=== PATIENT | female | born 1960 | race Caucasian/White ===

== ENCOUNTER → 2017-03-02 | Outpatient (CLI) | payer OTHER ==
[~2017-03-02] MED LIST: ALBU17AE23; ASPI-892; ATROVENT; FURO40TA4; HYDR-3714; KCL20TCR; LEVO75TA57; PRD10T; SMV20T; WARF7.5T
--- NOTE | 2017-03-05 09:16 | Diagnostic Imaging Report ---
Bilateral screening mammogram The current study was also evaluated with a Computer Aided Detection (CAD) system. Indication: Screening. No current complaints stated on the questionnaire. COMPARISON: 02/29/16. FINDINGS: The breasts are composed of scattered fibroglandular densities. There are scattered benign-appearing calcifications. Allowing for technique and positional differences, no suspicious change is seen. IMPRESSION: No significant change. ACR BI-RADS Category 2: Benign findings. Result letter will be mailed to the patient. Note: At least 10% of breast cancer is not imaged by mammography. Dictated by: Dictated on workstation # [id number]
== END ==
LOC: RAD 06:54
PROVIDERS: ATTEND Obstetrics & Gynecology
DX: Z12.31 Encounter for screening mammogram for malignant neoplasm of breast (principal)
CPT/HCPCS: 77067

== ENCOUNTER 2018-09-16 21:03 | Emergency (ER) | payer OTHER ==
[~2018-09-16] VITALS: Ht 167.6 cm; Wt 77.1 kg
[2018-09-16 21:34] LABS: INR 1.9 (0.8-1.4); PROTHROMBIN TIME PATIENT 22.2 SEC (12.2-14.7)
[2018-09-16 21:36] LABS: BASOPHILS # (AUTO) 0.1 10^3/uL (0.0-0.1); BASOPHILS % (AUTO) 1 % (0-10); EOSINOPHILS # (AUTO) 0.1 10^3/uL (0.0-0.3); EOSINOPHILS % (AUTO) 1 % (0-10); HEMATOCRIT 40 % (35-52); HEMOGLOBIN 13.8 G/DL (11.5-16.0); LYMPHOCYTES # (AUTO) 3.2 X 10^3 (1.0-4.0); LYMPHOCYTES % (AUTO) 36 % (12-44); MEAN CORPUSCULAR HEMOGLOBIN 32 PG (25-34); MEAN CORPUSCULAR HGB CONC 34 G/DL (32-36); MEAN CORPUSCULAR VOLUME 94 FL (80-99); MEAN PLATELET VOLUME 9.6 FL (7.4-10.4); MONOCYTES # (AUTO) 0.9 X 10^3 (0.0-1.0); MONOCYTES % (AUTO) 10 % (0-12); NEUTROPHILS # (AUTO) 4.6 X 10^3 (1.8-7.8); NEUTROPHILS % (AUTO) 52 % (42-75); PLATELET COUNT 271 10^3/uL (130-400); RED BLOOD COUNT 4.26 10^6/uL (4.35-5.85); WHITE BLOOD COUNT 8.8 10^3/uL (4.3-11.0)
--- NOTE | 2018-09-16 21:36 | ED EENT ---
History of Present Illness General Chief Complaint: Nasal Problems Stated Complaint: NOSE BLEED/ON BLOOD THINNERS Nursing Triage Note: PT AMB TO ROOM #7 W/O DIFFICLTY. A&OX4. C/O NOSE BLEED THAT BEGAN APPROX 1930 THIS EVENING. PT REPORTS SHE HAS NEVER HAD A NOSE BLEED LIKE THIS BEFORE AND HAS BEEN UNABLE TO STOP THE BLEEDING WITH PRESSURE. REPORTS TO BE TAKING COUMADIN AND HAD INR TAKEN THIS MORNING BUT DID NOT RECIEVE RESULTS. INITIAL BP 140/80. Source: patient Exam Limitations: no limitations History of Present Illness Date Seen by Provider: Sep 16, 2018 Time Seen by Provider: 21:06 Initial Comments Patient is a 58-year-old female who presents to the emergency room with complaints of a nosebleed that began around 1930 tonight. 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 She reports that she's held pressure has not been able to get the bleeding to stop. The bleeding is coming from the left nostril. Timing/Duration: abrupt Location: nose Prearrival Treatment: squeezing nostrils, nasal packing Associated Symptoms: denies symptoms Allergies and Home Medications Allergies Coded Allergies: No Known Drug Allergies (Verified Allergy, Unknown, 04/09/09) Patient Home Medication List Home Medication List Reviewed: Yes Review of Systems Review of Systems Constitutional: no symptoms reported, see HPI Nose: see HPI, epistaxis All Other Systems Reviewed Negative Unless Noted: Yes Past Jthtpkh-Kpdunw-Lfjstn Hx Past Med/Social Hx: Reviewed Nursing Past Med/Soc Hx Patient Social History Recent Foreign Travel: No Contact w/Someone Who Travel: No Recent Infectious Disease Expo: No Past Medical History Reproductive Disorders: No Family Medical History Reviewed Nursing Family Hx Physical Exam Vital Signs Vital Signs - First Documented 09/16/18 21:06 Temp 96.8 Pulse 86 Resp 16 B/P (MAP) 140/80 (100) Pulse Ox 96 O2 Delivery Room Air Height, Weight, BMI Height: 5'6.00" Weight: 170lbs. oz. 77.800572ib; BMI Method:Stated General Appearance: WD/WN, no apparent distress Nose: active bleeding (left nostril) Mouth/Throat: normal mouth inspection, other (no blood noted in the back of her throat.) Neck: non-tender, full range of motion, supple, normal inspection Cardiovascular: normal peripheral pulses, regular rate, rhythm, no edema, no gallop, no JVD, no murmur, other (audible clicking from artificial aortic valve) Respiratory: chest non-tender, lungs clear, normal breath sounds, no respiratory distress, no accessory muscle use Neurologic/Psychiatric: alert, normal mood/affect, oriented x 3 Skin: normal color, warm/dry Progress/Results/Core Measures Results/Orders Lab Results Laboratory Tests Test 09/16/18 21:16 Range/Units White Blood Count 8.8 4.3-11.0 10^3/uL Red Blood Count 4.26 L 4.35-5.85 10^6/uL Hemoglobin 13.8 11.5-16.0 G/DL Hematocrit 40 35-52 % Mean Corpuscular Volume 94 80-99 FL Mean Corpuscular Hemoglobin 32 25-34 PG Mean Corpuscular Hemoglobin Concent 34 32-36 G/DL Red Cell Distribution Width 14.0 10.0-14.5 % Platelet Count 271 130-400 10^3/uL Mean Platelet Volume 9.6 7.4-10.4 FL Neutrophils (%) (Auto) 52 42-75 % Lymphocytes (%) (Auto) 36 12-44 % Monocytes (%) (Auto) 10 0-12 % Eosinophils (%) (Auto) 1 0-10 % Basophils (%) (Auto) 1 0-10 % Neutrophils # (Auto) 4.6 1.8-7.8 X 10^3 Lymphocytes # (Auto) 3.2 1.0-4.0 X 10^3 Monocytes # (Auto) 0.9 0.0-1.0 X 10^3 Eosinophils # (Auto) 0.1 0.0-0.3 10^3/uL Basophils # (Auto) 0.1 0.0-0.1 10^3/uL Prothrombin Time 22.2 H 12.2-14.7 SEC INR Comment 1.9 H 0.8-1.4 Activated Partial Thromboplast Time 33 24-35 SEC My Orders Orders - ROLO TRAYLOR Protime With Inr (09/16/18 21:14) Partial Thromboplastin Time (09/16/18 21:14) Cbc With Automated Diff (09/16/18 21:30) Vital Signs/I&O 09/16/18 21:06 Temp 96.8 Pulse 86 Resp 16 B/P (MAP) 140/80 (100) Pulse Ox 96 O2 Delivery Room Air Blood Pressure Mean: 100 Progress Progress Note : Time: 21:10 Progress Note The patient's nasal packing of tissue was removed and she blew her nose to remove any possible clots. Small amount of blood started out of the left nostril. Nose clamp was placed. Bleeding ceased. We will continue to observe while awaiting lab work. Departure Impression Primary Impression: Epistaxis Disposition: HOME, SELF-CARE Condition: Stable/Unchanged Departure-Patient Inst. Decision time for Depature: 22:12 Referrals: MACARIO NAIDU MD (PCP/Family) Primary Care Physician Patient Instructions: Nosebleeds (DC) Add. Discharge Instructions: If your nose should start bleeding again apply direct pressure for 15-20 minutes with the nose clamp. If you are unsuccessful at getting the bleeding to stop. Return back to the emergency room. Follow-up with your primary care provider within 1 week for recheck. Return back to the emergency room for any worsening symptoms or concerns as needed. All discharge instructions reviewed with patient and/or family. Voiced understanding. ROLO TRAYLOR Sep 16, 2018 21:36
[2018-09-16 22:22] VITALS: BP 108/62
== END 2018-09-16 22:22 | disposition home or self-care (01) ==
LOC: EDUNIT# 21:03 → ER 21:03
DX: R04.0 Epistaxis (principal)
CPT/HCPCS: 36415; 85025; 85610; 85730

== ENCOUNTER → 2019-03-04 | Outpatient (CLI) | payer OTHER ==
--- NOTE | 2019-03-04 12:56 | Diagnostic Imaging Report ---
INDICATION: Routine screening. COMPARISON: 03/04/2018 and 03/02/2017. TECHNIQUE: 2D and 3D bilateral screening mammography was performed with CAD. FINDINGS: Scattered fibroglandular densities are identified bilaterally. Benign calcifications are identified bilaterally. No mass or malignant appearing microcalcifications are seen. The axillae are unremarkable. IMPRESSION: No mammographic features suspicious for malignancy are identified. ACR BI-RADS Category 2: Benign findings. Result letter will be mailed to the patient. Note: At least 10% of breast cancer is not imaged by mammography. Dictated by: Dictated on workstation # [id number]
== END ==
LOC: RAD 07:08
PROVIDERS: ATTEND Obstetrics & Gynecology
DX: Z12.31 Encounter for screening mammogram for malignant neoplasm of breast (principal)
CPT/HCPCS: 77067

== ENCOUNTER 2019-12-09 08:31 | Emergency (ER) | payer OTHER ==
[~2019-12-09] VITALS: Ht 167 cm; Wt 77.0 kg
--- NOTE | 2019-12-09 08:40 | NUR ---
INSERTED 7.5 RAPID RHINO IN L NOSTRIL
[2019-12-09 09:05] LABS: BASOPHILS % (AUTO) 0 % (0-10); EOSINOPHILS # (AUTO) 0.1 10^3/uL (0.0-0.3); EOSINOPHILS % (AUTO) 1 % (0-10); HEMATOCRIT 42 % (35-52); HEMOGLOBIN 14.4 G/DL (11.5-16.0); LYMPHOCYTES # (AUTO) 2.5 X 10^3 (1.0-4.0); LYMPHOCYTES % (AUTO) 25 % (12-44); MEAN CORPUSCULAR HEMOGLOBIN 32 PG (25-34); MEAN CORPUSCULAR HGB CONC 34 G/DL (32-36); MEAN CORPUSCULAR VOLUME 95 FL (80-99); MONOCYTES % (AUTO) 10 % (0-12); NEUTROPHILS # (AUTO) 6.4 X 10^3 (1.8-7.8); NEUTROPHILS % (AUTO) 63 % (42-75); PLATELET COUNT 257 10^3/uL (130-400); RED CELL DISTRIBUTION WIDTH 13.9 % (10.0-14.5)
[2019-12-09] MEDS ORDERED: ACETAMINOPHEN 500 MG TAB (TYLENOL) PO STA (09:19)
[2019-12-09 09:24] LABS: INR 1.8 (0.8-1.4); PROTHROMBIN TIME PATIENT 21.3 SEC (12.2-14.7)
--- NOTE | 2019-12-09 09:28 | ED EENT ---
History of Present Illness General Chief Complaint: Nasal Problems Stated Complaint: NOSE BLEED Nursing Triage Note: PT AMUBULATED TO ROOM [address] NAIDU'S OFFICE W NOSE BLEED THAT THEY WERE UNABLE TO STOP. PT STATES STARTED BLEEDING 0630 THIS AM. PT IS ON COUMADIN Source: patient, family Exam Limitations: no limitations History of Present Illness Date Seen by Provider: Dec 09, 2019 Time Seen by Provider: 08:36 Initial Comments Here with report of nosebleed that started about 6:30 this morning. She's had multiple nosebleeds over the past few months. She is on Coumadin for mechanical heart valve and is on aspirin as well. She also takes naproxen intermittently fo r pain. This is apparently prescribed. She uses a humidifier in her bedroom and in her office at work. She went to her doctor's office first and they could not get the bleeding to stop and sent her over here. Noticed that the bleeding was from the left but with direct pressure, the bleeding would then move around to the right. She is spitting out blood as well. She has direct pressure currently and still has blood going down her throat currently. Denies any injury. Timing/Duration: abrupt Location: nose Prearrival Treatment: squeezing nostrils, nasal packing Associated Symptoms: No facial pain/swelling, No fever Allergies and Home Medications Allergies Coded Allergies: No Known Drug Allergies (Verified Allergy, Unknown, 04/09/09) Patient Home Medication List Home Medication List Reviewed: Yes Review of Systems Review of Systems Constitutional: see HPI; No chills, No fever Eyes: No Symptoms Reported Nose: clots, epistaxis Mouth: no symptoms reported Throat: no symptoms reported Respiratory: no symptoms reported Cardiovascular: see HPI; No chest pain, No edema Skin: no symptoms reported Past Ekcpsmo-Veptup-Tcvcfv Hx Past Med/Social Hx: Reviewed Nursing Past Med/Soc Hx Patient Social History Alcohol Use: Denies Use Recreational Drug Use: No Smoking Status: Never a Smoker Type Used: Cigarettes 2nd Hand Smoke Exposure: Yes Recent Foreign Travel: No Contact w/Someone Who Travel: No Recent Infectious Disease Expo: No Recent Hopitalizations: No Physical Abuse: No Sexual Abuse: No Seasonal Allergies Seasonal Allergies: No Past Medical History Surgeries: Yes (L LUMPECTOMY, D AND C) CABG Respiratory: No Cardiac: Yes High Cholesterol, Hypertension Neurological: No Reproductive Disorders: No Genitourinary: No Gastrointestinal: No Musculoskeletal: No Endocrine: Yes HEENT: No Cancer: No Psychosocial: No Integumentary: No Blood Disorders: Yes Family Medical History Reviewed Nursing Family Hx No Pertinent Family Hx Physical Exam Vital Signs Vital Signs - First Documented 12/09/19 12/09/19 08:31 10:08 Temp 36.6 Pulse 101 Resp 24 B/P (MAP) 144/94 (111) Pulse Ox 96 O2 Delivery OxyMask O2 Flow Rate 10.00 Height, Weight, BMI Height: 5'6.00" Weight: 170lbs. oz. 77.734663lj; 27.00 BMI Method:Stated General Appearance: WD/WN, no apparent distress Nose: active bleeding, other (Blood noted from left side of nose with moderate to rapid drainage. Also noted drainage from the right nares and posterior pharynx with clot noted in the posterior pharynx.) Mouth/Throat: No trismus; other (clot noted as above) Neck: full range of motion, supple Cardiovascular: regular rate, rhythm, no murmur Respiratory: lungs clear, normal breath sounds Neurologic/Psychiatric: alert, oriented x 3 Skin: normal color, warm/dry Progress/Results/Core Measures Results/Orders Lab Results Laboratory Tests Test 12/09/19 08:54 12/09/19 10:14 Range/Units White Blood Count 10.0 4.3-11.0 10^3/uL Red Blood Count 4.47 4.35-5.85 10^6/uL Hemoglobin 14.4 11.5-16.0 G/DL Hematocrit 42 35-52 % Mean Corpuscular Volume 95 80-99 FL Mean Corpuscular Hemoglobin 32 25-34 PG Mean Corpuscular Hemoglobin Concent 34 32-36 G/DL Red Cell Distribution Width 13.9 10.0-14.5 % Platelet Count 257 130-400 10^3/uL Mean Platelet Volume 10.0 7.4-10.4 FL Neutrophils (%) (Auto) 63 42-75 % Lymphocytes (%) (Auto) 25 12-44 % Monocytes (%) (Auto) 10 0-12 % Eosinophils (%) (Auto) 1 0-10 % Basophils (%) (Auto) 0 0-10 % Neutrophils # (Auto) 6.4 1.8-7.8 X 10^3 Lymphocytes # (Auto) 2.5 1.0-4.0 X 10^3 Monocytes # (Auto) 1.0 0.0-1.0 X 10^3 Eosinophils # (Auto) 0.1 0.0-0.3 10^3/uL Basophils # (Auto) 0.0 0.0-0.1 10^3/uL Prothrombin Time 21.3 H 12.2-14.7 SEC INR Comment 1.8 H 0.8-1.4 Activated Partial Thromboplast Time 34 24-35 SEC Sodium Level 139 135-145 MMOL/L Potassium Level 4.2 3.6-5.0 MMOL/L Chloride Level 109 H 98-107 MMOL/L Carbon Dioxide Level 20 L 21-32 MMOL/L Anion Gap 10 5-14 MMOL/L Blood Urea Nitrogen 30 H 7-18 MG/DL Creatinine 0.82 0.60-1.30 MG/DL Estimat Glomerular Filtration Rate > 60 BUN/Creatinine Ratio 37 Glucose Level 124 H 70-105 MG/DL Calcium Level 9.4 8.5-10.1 MG/DL Corrected Calcium 9.3 8.5-10.1 MG/DL Magnesium Level 1.9 1.6-2.4 MG/DL Total Bilirubin 0.4 0.1-1.0 MG/DL Aspartate Amino Transf (AST/SGOT) 20 5-34 U/L Alanine Aminotransferase (ALT/SGPT) 20 0-55 U/L Alkaline Phosphatase 80 40-136 U/L Troponin I < 0.028 <0.028 NG/ML Total Protein 7.1 6.4-8.2 GM/DL Albumin 4.1 3.2-4.5 GM/DL TSH [place] Testing 1.08 0.35-4.94 UIU/ML My Orders Orders - DONNY HENRIQUEZ MD Cbc With Automated Diff (12/09/19 08:51) Protime With Inr (12/09/19 08:51) Partial Thromboplastin Time (12/09/19 08:51) Acetaminophen Tablet (Tylenol Tablet) (12/09/19 09:19) Hydrocodone/Apap 5/325 Tablet (Lortab 5 (12/09/19 09:30) Comprehensive Metabolic Panel (12/09/19 10:17) Magnesium (12/09/19 10:17) Thyroid Analyzer (12/09/19 10:17) Troponin I (12/09/19 10:17) Ed Iv/Invasive Line Start (12/09/19 10:17) Ekg Tracing (12/09/19 10:17) O2 (12/09/19 10:17) Monitor-Rhythm Ecg Trace Only (12/09/19 10:17) Ed Iv/Invasive Line Start (12/09/19 10:17) Lactated Ringers (Lr 1000 Ml Iv Solution (12/09/19 10:17) Chest 1 View, Ap/Pa Only (12/09/19 10:37) Ed Iv/Invasive Line Start (12/09/19 11:07) Lactated Ringers (Lr 1000 Ml Iv Solution (12/09/19 11:07) Medications Given in ED Current Medications Medications Dose Ordered Sig/Sarah Route Start Time Stop Time Status Last Admin Dose Admin Acetaminophen/ Hydrocodone Bitart 1 tab ONCE ONCE PO 12/09/19 09:30 12/09/19 09:31 DC 12/09/19 09:23 1 TAB Lactated Ringer's 1,000 ml @ 0 mls/hr Q0M ONCE IV 12/09/19 10:17 12/09/19 10:19 DC 12/09/19 10:08 1,000 MLS/HR Lactated Ringer's 1,000 ml @ 0 mls/hr Q0M ONCE IV 12/09/19 11:07 12/09/19 11:09 DC 12/09/19 10:12 1,000 MLS/HR Vital Signs/I&O 12/09/19 12/09/19 08:31 10:08 Temp 36.6 Pulse 101 Resp 24 B/P (MAP) 144/94 (111) Pulse Ox 96 88 O2 Delivery OxyMask O2 Flow Rate 10.00 Blood Pressure Mean: 111 Progress Progress Note : Progress Note Seen and evaluated. Significant bleeding noted bilateral nares and posterior pharynx despite direct pressure. Bleeding initially from left naris so 7.5 cm rapid Rhino placed to the left and balloon inflated. Bleeding did stop. Large clot was dislodged and patient was able to spit that out. She was a lot more comfortable afterwards. We will check blood counts and coags. Monitor patient. 0915: Hydrocodone 5/325 one tab by mouth given and acetaminophen 500 mg by mouth given. Monitor patient. Bleeding has stopped. 0940: We're working on getting appointment with Dr. Lopez's office this week. 1030: At time of discharge (1010), patient became weak and had near syncopal episode. In pressure noted to drop down to the 70s systolic. IV 2 initiated and LR 1 L bolus initiated and second LR bolus initiated. I did relax the balloon slightly. Placed on monitor. We will get more complaints of the labs and EKG. She is doing better currently with blood pressure 103/56 and heart rate of 72 and O2 sat 97% on supplemental oxygen. Monitor patient. 1155: Patient has been unable to walk unassisted and is overall feeling much better. I was able to decrease the pressure in the balloon while maintaining hemostasis. This has made her more comfortable. Discharged home with return precautions. Patient and family verbalize understanding instructions and agreement with plan. Initial ECG Impression Date: Dec 09, 2019 Initial ECG Impression Time: 10:21 Initial ECG Rate: 74 Initial ECG Rhythm: Normal Sinus Initial ECG Impression: Sinus Bradycardia Initial ECG Comparisson: Changed (essentially unchanged from 09 March 2009 but there is minimal first-degree AV block noted now.) Comment Sinus rhythm with first-degree AV block. Left atrial abnormality. Normal axis. No evidence of ST elevation PA. Interpreted by me. Diagnostic Imaging Diagonstic Imaging: Xray Plain Films/CT/US/NM/MRI: chest Comments [facility]. [place], [place] NAME: SUZANNE LEY [facility] REC#: [id number] PT STATUS: REG ER : 1960 PHYSICIAN: DONNY HENRIQUEZ MD ADMIT DATE: 12/09/19/ER Draft Date of Exam:12/09/19 CHEST 1 VIEW, AP/PA ONLY INDICATION: Epistaxis since earlier in the day. TECHNIQUE: Single view chest at 11:12 AM. CORRELATION STUDY: 03/09/2009. FINDINGS: There has been interval sternotomy changes as well as placement of a cardiac prosthesis. The heart size is enlarged. The vasculature is slightly increased. The lungs are clear with no consolidating infiltrate. There is no significant effusion or pneumothorax. IMPRESSION: Interval sternotomy changes with placement of a cardiac valve. Cardiac enlargement with borderline vasculature, a change from the prior study. Dictated on workstation # [id number] Dict: 12/09/19 1118 Trans: 12/09/19 1138 [id number] Interpreted by: MACIEL ROBERTSON DO Electronically signed by: Departure Impression Primary Impression: Epistaxis Additional Impression: Syncope Qualified Codes: R55 - Syncope and collapse Disposition: 01 HOME, SELF-CARE Condition: Improved Departure-Patient Inst. Decision time for Depature: 09:43 Referrals: MACARIO NAIDU MD (PCP/Family) Primary Care Physician Patient Instructions: Nosebleeds (DC), Syncope (Fainting) (DC) Add. Discharge Instructions: All discharge instructions reviewed with patient and/or family. Voiced understanding. Follow-up with your Dr. in a few days for recheck. Follow-up with Dr. Lopez's clinic on Sunday, 12/12 at 9 AM. Please be 15 minutes early recheck in. Keep rapid Rhino in place. You may take Tylenol/acetaminophen 1000 mg every 6-8 hours as needed for pain. Do not exceed 4000 mg in 24 hours. Return for worse pain, fever, vomiting, weakness, breathing problems or other concerns as needed. Copy Copies To 1: BRITTNEY LOPEZ MD Copies To 2: MACARIO NAIDU MD, TIMOTHY D MD Dec 09, 2019 09:28
[2019-12-09] MEDS ORDERED: HYDROcodone/APAP 5 MG/325 MG (LORTAB) TAB PO ONE (09:30)
--- NOTE | 2019-12-09 10:06 | NUR ---
PT BEING DISCHARGED, PT BECAME WEAK AND DIZZY, PT HAD NEAR SYNCOPAL EPISODE AND WAS UNABLE TO FOLLOW DIRECTIONS, TO LIFT R LEG ONTO BED. PT VERY PALE. DR NOTIFIED AND TO ROOM, PT TO MONITORS. 1008 IV STARTED AND LR AT OPEN STARTED.PT SAT 88% RA 1012 IV STARTED AND 2ND LITER OF LR STARTED. PT ECO2- 24. B/P-81/55 PT VERY GROGGY
[2019-12-09] MEDS ORDERED: LACTATED RINGERS 1,000 ML IV ONE ×3 (10:17→15:25)
[2019-12-09 10:41] LABS: ALANINE AMINOTRANSFERASE 20 U/L (0-55); ALBUMIN 4.1 GM/DL (3.2-4.5); ALKALINE PHOSPHATASE 80 U/L (40-136); BILIRUBIN,TOTAL 0.4 MG/DL (0.1-1.0); BUN/CREATININE RATIO 37; CALCIUM 9.4 MG/DL (8.5-10.1); CARBON DIOXIDE 20 MMOL/L (21-32); CHLORIDE 109 MMOL/L (98-107); CREATININE SERUM 0.82 MG/DL (0.60-1.30); GFR ESTIMATED > 60; GLUCOSE 124 MG/DL (70-105); MAGNESIUM 1.9 MG/DL (1.6-2.4); POTASSIUM 4.2 MMOL/L (3.6-5.0); SODIUM 139 MMOL/L (135-145); TOTAL PROTEIN 7.1 GM/DL (6.4-8.2)
--- NOTE | 2019-12-09 11:00 | NUR ---
PT MORE AWAKE BUT RESTS W EYES CLOSED. AT SIDE
[2019-12-09 11:01] LABS: TSH (THYROID ANALYZER) 1.08 UIU/ML (0.35-4.94)
--- NOTE | 2019-12-09 11:38 | Diagnostic Imaging Report ---
INDICATION: Epistaxis since earlier in the day. TECHNIQUE: Single view chest at 11:12 AM. CORRELATION STUDY: 03/09/2009. FINDINGS: There has been interval sternotomy changes as well as placement of a cardiac prosthesis. The heart size is enlarged. The vasculature is slightly increased. The lungs are clear with no consolidating infiltrate. There is no significant effusion or pneumothorax. IMPRESSION: Interval sternotomy changes with placement of a cardiac valve. Cardiac enlargement with borderline vasculature, a change from the prior study. Dictated by: Dictated on workstation # [id number]
[2019-12-09 12:05] VITALS: BP 97/58
== END 2019-12-09 12:05 | disposition home or self-care (01) ==
LOC: EDUNIT# 08:31 → ER 08:32
DX: R04.0 Epistaxis (principal); R55 Syncope and collapse; I10 Essential (primary) hypertension; E78.00 Pure hypercholesterolemia, unspecified; Z77.22 Contact with and (suspected) exposure to environmental tobacco smoke (acute) (chronic); Z95.1 Presence of aortocoronary bypass graft; Z79.82 Long term (current) use of aspirin; Z95.2 Presence of prosthetic heart valve
CPT/HCPCS: 36415; 71045; 80053; 83735; 84443; 84484; 85025; 85610; 85730; 93005; 93041

== ENCOUNTER → 2020-04-06 | Outpatient (CLI) | payer OTHER ==
--- NOTE | 2020-04-06 12:40 | Diagnostic Imaging Report ---
INDICATION: Routine screening. COMPARISON: 03/04/2019 and 03/04/2018. TECHNIQUE: 2D and 3D bilateral screening mammography was performed with CAD. FINDINGS: Scattered fibroglandular densities are identified bilaterally. Benign calcifications are noted bilaterally. The overall parenchymal pattern appears to be stable. No dominant mass or malignant appearing microcalcifications are seen. The axillae are unremarkable. IMPRESSION: No mammographic features suspicious for malignancy are identified. ACR BI-RADS Category 2: Benign findings. Result letter will be mailed to the patient. Note: At least 10% of breast cancer is not imaged by mammography. Dictated by: Dictated on workstation # [id number]
== END ==
LOC: RAD 07:04
PROVIDERS: ATTEND Obstetrics & Gynecology
DX: Z12.31 Encounter for screening mammogram for malignant neoplasm of breast (principal)
CPT/HCPCS: 77063; 77067

== ENCOUNTER → 2021-05-09 | Outpatient (CLI) | payer OTHER ==
--- NOTE | 2021-05-09 10:55 | Diagnostic Imaging Report ---
INDICATION: Routine screening. COMPARISON: 04/06/2020 and 03/04/2019. TECHNIQUE: 2D and 3D bilateral screening mammography was performed with CAD. FINDINGS: Scattered fibroglandular densities are identified bilaterally. The parenchymal pattern is stable. There are benign calcifications bilaterally. No mass or malignant appearing microcalcifications are seen. The axillae are unremarkable. IMPRESSION: No mammographic features suspicious for malignancy are identified. ACR BI-RADS Category 2: Benign findings. Result letter will be mailed to the patient. Note: At least 10% of breast cancer is not imaged by mammography. Dictated by: Dictated on workstation # [id number]
== END ==
LOC: RAD 08:59
PROVIDERS: ATTEND Obstetrics & Gynecology
DX: Z12.31 Encounter for screening mammogram for malignant neoplasm of breast (principal)
CPT/HCPCS: 77063; 77067

== ENCOUNTER → 2021-07-14 | Outpatient (CLI) | payer OTHER | LOC: CARD 10:00 | PROVIDERS: ATTEND Family Medicine | DX: I08.3 Combined rheumatic disorders of mitral, aortic and tricuspid valves (principal); I25.10 Atherosclerotic heart disease of native coronary artery without angina pectoris | CPT/HCPCS: 93306 ==

== ENCOUNTER → 2021-08-19 | Outpatient (CLI) | payer OTHER ==
[~2021-08-19] VITALS: Ht 165 cm; Wt 75.0 kg
[~2021-08-19] MED LIST changes: +REGADENOSON 0.4 MG/5 ML SYR (LEXISCAN) IV ONE
[2021-08-19] MEDS: CATHETER FLUSH 10 ML SYR IV PRN ×2 (07:29→09:01)
[2021-08-19 09:00] VITALS: BP 118/72
--- NOTE | 2021-08-22 13:45 | STRESS TEST ---
DATE OF SERVICE: RESTING AND POST REGADENOSON TECHNETIUM-99M TETROFOSMIN SPECT CT IMAGING ORDERING PHYSICIAN: Natasha Sung APRN PRIMARY PHYSICIAN: Dr. Gabriel. CLINICAL DIAGNOSES: Coronary artery disease. Baseline images were carried out after injection of 10.46 mCi of technetium-99m Tetrofosmin. This was followed by 0.4 mg of regadenoson and 30.1 mCi of technetium-99m Tetrofosmin for stress imaging. The electrocardiogram showed sinus rhythm at baseline. There is nonspecific intraventricular conduction delay. The electrocardiogram did not change significantly with regadenoson infusion. The patient tolerated the procedure well. Review of images at rest and following stress does not indicate any distinct perfusion defects consistent with significant myocardial ischemia or infarction. Some apical thinning is noted both at rest and following regadenoson infusion. Gated images show normal global left ventricular systolic function with normal regional wall motion, including the left ventricular apex. Left ventricular ejection fraction is calculated to be 67%. Left ventricular end diastolic volume is 58 mL. TID is absent (1.15). CONCLUSIONS: 1. No evidence of any significant myocardial ischemia or infarction on this study. 2. Normal regional wall motion. 3. Normal global left ventricular systolic function with a calculated ejection fraction of 67%. Job ID: [id number] DocumentID: [id number] Dictated Date: 08/22/2021 13:00:55 Production Operations Inspector Date: 08/22/2021 13:44:37 Dictated By: GLENN RM MD, MA, FACP, FACC,
== END ==
LOC: CARD 07:45
PROVIDERS: ATTEND Nurse Practitioner Family
DX: I25.10 Atherosclerotic heart disease of native coronary artery without angina pectoris (principal)
CPT/HCPCS: 78452; 93017; A9502

== ENCOUNTER → 2022-03-01 | Outpatient (CLI) | payer OTHER ==
[~2022-03-01] MED LIST changes: -REGADENOSON 0.4 MG/5 ML SYR (LEXISCAN) IV ONE
--- NOTE | 2022-03-02 09:04 | Diagnostic Imaging Report ---
Indication: Routine screening. Comparison is made with prior mammogram 05/09/2021 and 04/06/2020. 2-D and 3-D bilateral screening mammography was performed with CAD. CAD is utilized. The current study was also evaluated with a Computer Aided Detection (CAD) system. Scattered fibroglandular densities are identified bilaterally. The parenchymal pattern is stable. There are benign calcifications bilaterally. No mass or malignant-appearing microcalcifications are seen. Axillae are unremarkable. IMPRESSION: BI-RADS Category 2 No mammographic features suspicious for malignancy are identified. ACR BI-RADS Category 2: Benign findings. Result letter will be mailed to the patient. Note: At least 10% of breast cancer is not imaged by mammography. Dictated by: Dictated on workstation # [id number]
== END ==
LOC: RAD 15:45
PROVIDERS: ATTEND Family Medicine
DX: Z12.31 Encounter for screening mammogram for malignant neoplasm of breast (principal)
CPT/HCPCS: 77063; 77067

== ENCOUNTER 2022-03-09 05:38 | Outpatient (CLI) | payer OTHER ==
[~2022-03-09] VITALS: Ht 167.6 cm; Wt 77.6 kg
[2022-03-09] MEDS ORDERED: CETI10TA17 PO (09:49)
[2022-03-09] MEDS ORDERED: ROSU20TA32 PO (09:49)
== END 2022-03-09 10:05 | disposition home or self-care (01) ==
LOC: PREOP 05:38
PROVIDERS: ATTEND Surgery
DX: Z01.818 Encounter for other preprocedural examination (principal)

== ENCOUNTER 2022-03-21 07:20 | Day surgery (SDC) | payer OTHER ==
[~2022-03-21] VITALS: Ht 167.6 cm; Wt 77.6 kg
[~2022-03-21 07:20] MED LIST changes: +CETI10TA17 PO; +ROSU20TA32 PO
[2022-03-21] MEDS ORDERED: LACTATED RINGERS 1,000 ML IV STA (07:26)
[2022-03-21 07:33] VITALS: BP 97/62
[2022-03-21] MEDS ORDERED: MIDAZOLAM 2 MG/2 ML (VERSED) VIAL ONE (07:42)
[2022-03-21] MEDS ORDERED: PROPOFOL INJECTION 50 ML IV ONE (07:42)
[2022-03-21 08:35] VITALS: BP 89/54
[2022-03-21 08:40] VITALS: BP 88/52
--- NOTE | 2022-03-21 08:41 | Discharge Inst-Simple/Standard ---
Discharge Inst-Standard Patient Instructions/Follow Up Plan of Care/Instructions/FU: 2 weeks pavithra start coumadin tomorrow Activity as Tolerated: Yes Discharge Diet: Regular Diet (high fiber) DION HERNANDEZ DO March 21, 2022 08:41
[2022-03-21 08:45] VITALS: BP 107/62
[2022-03-21 09:15] VITALS: BP 111/68
--- NOTE | 2022-03-21 12:08 | Anesthesia-General Post-Op ---
MAC Patient Condition Mental Status/LOC: Same as Preop Cardiovascular: Satisfactory Nausea/Vomiting: Absent Respiratory: Satisfactory Pain: Controlled Complications: Absent Post Op Complications Complications None Follow Up Care/Instructions Patient Instructions None needed. Anesthesiology Discharge Order Discharge Order Patient is doing well, no complaints, stable vital signs, no apparent adverse anesthesia problems. No complications reported per nursing. CARLOS BARBER CRNA March 21, 2022 12:08
--- NOTE | 2022-03-21 12:14 | OPERATIVE REPORT ---
DATE OF SERVICE: 03/21/2022 PREOPERATIVE DIAGNOSIS: Screening colonoscopy. POSTOPERATIVE DIAGNOSES: Diverticulosis and colon polyps. PROCEDURE: Colonoscopy with hot polypectomy x5. SURGEON: Dion Barakat DO ANESTHESIA: Per SALESPERSON HEARING AIDS. ESTIMATED BLOOD LOSS: None. COMPLICATIONS: None. INDICATIONS: The patient is a 61-year-old female needing colonoscopy. She understands risks and benefits of procedure and wished to proceed. Consent was signed in the chart. DESCRIPTION OF PROCEDURE: The patient was taken to the endoscopy suite, placed in left lateral recumbent position. Timeout was performed. A digital rectal exam was performed. No palpable polyps, masses or ulcerations. Scope was inserted in the rectum and advanced all the way to cecum with minimal difficulty. Prep was adequate with irrigation and suction. Scope was then slowly retracted back. No polyps, masses or ulcerations in the cecum, ascending and transverse colon. Within the descending colon, small polyp was present, which hot biopsy polypectomy was performed. Scope was then continuously retracted back noting diverticulosis of the sigmoid colon and also noting a polyp in the proximal sigmoid, which hot biopsy polypectomy was performed. Scope was then continuously retracted back, three polyps were present in the sigmoid and distal portion, which hot biopsy polypectomies were performed. Scope was then continuously retracted back into the rectum, where it was also retroflexed noting no other pathology. The scope was then returned to its normal position, slowly withdrawn until completely removed, noting no other pathology. The patient tolerated the procedure well without any complications. She was taken to recovery room in stable condition. RECOMMENDATIONS: The patient will need repeat colonoscopy in 5 years. Any issues before that be seen at that time. Due to diverticulosis, would recommend high fiber diet. Job ID: [id number] DocumentID: [id number] Dictated Date: 03/21/2022 08:38:41 Project Associate Date: 03/21/2022 12:13:57 Dictated By: DION BARAKAT DO
== END 2022-03-21 09:25 | disposition home or self-care (01) ==
LOC: ENDO 07:20
PROVIDERS: ATTEND Surgery
DX: Z12.11 Encounter for screening for malignant neoplasm of colon (principal); K63.5 Polyp of colon; K57.30 Diverticulosis of large intestine without perforation or abscess without bleeding; Z79.82 Long term (current) use of aspirin; Z95.1 Presence of aortocoronary bypass graft; Z87.891 Personal history of nicotine dependence
CPT/HCPCS: 88305

== ENCOUNTER → 2022-06-23 | Outpatient (CLI) | payer OTHER ==
--- NOTE | 2022-06-23 10:15 | Diagnostic Imaging Report ---
PROCEDURE: US left lower extremity venous. TECHNIQUE: Multiple real-time grayscale images were obtained over the left lower extremity in various projections. Additional duplex Doppler and color Doppler images were also obtained. INDICATION: Left leg swelling. There is no evidence of left lower extremity DVT. Left lower extremity deep venous system shows normal compressibility with normal response to augmentation and Valsalva. No fluid collection or mass is detected. IMPRESSION: No evidence of left lower extremity DVT. Dictated by: Dictated on workstation # [id number]
== END ==
LOC: RAD 09:31
PROVIDERS: ATTEND Family Medicine
DX: M79.89 Other specified soft tissue disorders (principal); M79.662 Pain in left lower leg

== ENCOUNTER → 2023-03-02 | Outpatient (CLI) | payer OTHER ==
--- NOTE | 2023-03-02 14:07 | Diagnostic Imaging Report ---
Indication: Routine screening. Comparison is made with prior mammograms from 03/01/2022 and 05/09/2021. 2-D and 3-D bilateral screening mammography was performed with CAD. Scattered fibroglandular densities are identified bilaterally. The parenchymal pattern is stable. No dominant mass or malignant-appearing microcalcifications are seen. There are benign calcifications bilaterally. Axillae are unremarkable. IMPRESSION: BI-RADS Category 2. No mammographic features suspicious for malignancy are identified. ACR BI-RADS Category 2: Benign findings. Result letter will be mailed to the patient. Note: At least 10% of breast cancer is not imaged by mammography. Dictated by: Dictated on workstation # [id number]
== END ==
LOC: RAD 06:46
PROVIDERS: ATTEND Family Medicine
DX: Z12.31 Encounter for screening mammogram for malignant neoplasm of breast (principal)
CPT/HCPCS: 77063; 77067

== ENCOUNTER → 2023-07-03 | Outpatient (CLI) | payer OTHER ==
[~2023-07-03] MED LIST changes: -ROSU20TA32 PO; +ROSU20TA73 PO
== END ==
LOC: CARD 08:32
PROVIDERS: ATTEND Nurse Practitioner Family
DX: I25.10 Atherosclerotic heart disease of native coronary artery without angina pectoris (principal); Z95.2 Presence of prosthetic heart valve
CPT/HCPCS: 93306